=== PATIENT | female | born 1970 | race Caucasian/White ===

== ENCOUNTER 2023-07-30 20:51 | Inpatient (IN) ==
--- NOTE | 2023-07-30 21:07 | Emergency Department Note ---
Impression & Plan Chest pain ADMIT ED Provider Note HPI: History obtained from patient The patient is a 52-year-old female who presents emergency department chief complaint of chest pain. Patient states that 1 hour prior to arrival to the ER she developed chest pain across her entire chest, upper abdomen, and bilateral arms. On arrival here to the ED the patient states she is still having discomfort however it is improved from previous. Patient is hemodynamically stable otherwise on arrival, denies any shortness of breath, denies any nausea or vomiting. ROS: - Per HPI Differential Diagnosis: Acute coronary syndrome, pulmonary embolism, pneumothorax, gastritis, esophagitis, acute pancreatitis, aortic dissection, amongst other potential pathologies. *Outpatient medications and allergy history reviewed. PE: General: Alert HEENT: Normocephalic, trachea midline Eyes: Extraocular eye movement is intact, no scleral erythema Pulmonary: Clear to auscultation bilaterally, no wheezing Cardio: Regular rate and rhythm GI: Abdomen is soft to palpation : No suprapubic tenderness MSK: No evidence of trauma or malformation of the extremities, no edema Skin: No evidence of rash Neuro: Alert, no focal deficits Psychiatric: Cooperative INDEPENDENT INTERPRETATIONS: shelter monitor: (As interpreted by myself): - An order was placed for continuous cardiac monitoring - Patient was noted to be in sinus rhythm with a rate of 58 EKG #1 (As interpreted by myself): Rate: 55 Rhythm: Sinus rhythm Intervals: Within normal limits ST changes: T wave inversions noted in leads V1, V2, V3, no ST elevation Time: 210 Date: 07/30/2023 EKG #2: (As interpreted by myself): Rate: 50 Rhythm: Sinus rhythm Intervals: Within normal limits ST changes: T wave inversions noted in leads V1, V2, V3, no evidence of ST elevation Time: 0004 Date: 07/31/2023 Chest x-ray: (As interpreted by myself): No acute disease Interventions provided in ED: -IV morphine, IV Zofran, aspirin Medical Decision Making: IV was established and lab work obtained, patient was placed on alarm security or surveillance monitor. EKG was obtained shortly after the patient arrived that shows some evidence of T wave inversions in the anterior leads without any previous EKG available for comparison. No evidence of ST elevation LA. Lab work shows no leukocytosis, hemoglobin is normal, platelet count is normal, CMP does not show any critical findings. Initial high-sensitivity troponin level obtained here in the ED returns at 20.5. CT angiography of the chest was obtained and there is no evidence of any pulmonary embolism or aortic dissection. On my reassessment following IV morphine and IV Zofran the patient states her pain is much improved but she still does have some mild discomfort. At this time, I did discuss the patient's presentation with the on-call hospitalist, Dr. Ny, and he did accept the patient for inpatient care for further management and rule out of ACS. Repeat troponin did result following my discussion with Dr. Ny and returns at 228.4. On my reassessment the patient remained stable. Repeat EKG was performed at this time as the patient was still in the ED and repeat EKG does not show any acute changes from previous. I did inform Dr. Ny of the delta troponin change following our initial discussion, in addition to the repeat EKG obtained in the ED not showing any acute changes. Patient is hemodynamically stable on my reassessment, she is admitted to the hospitalist service at this time. Patient was admitted in stable condition. Consultants/Discussions held with other healthcare providers: -Hospitalist, Dr. Ny Disposition discussion held by myself with: -Patient and significant other at the bedside Diagnosis: 1. Chest pain, acute 2. Elevated high-sensitivity troponin level, acute 3. T wave inversions on EKG, unknown chronicity Disposition: ADMIT Jose Elias Broussard, DO Emergency Medicine Past Med/Surg History Social History Smoking Status: Never smoker Preferred Language: Latvian Feels Safe at Home: Yes Allergies Allergies Allergy/AdvReac Type Severity Reaction Status Date / Time Penicillins Allergy Unknown childhood Verified 07/30/23 23:33 reaction Sulfa (Sulfonamide Allergy Rash Verified 07/30/23 23:33 Antibiotics) Home Meds Home Medications Medication Instructions Recorded Confirmed acetaminophen 500 mg tablet 1,000 mg PO Q6H PRN Fever Or Pain 07/30/23 07/30/23 (Tylenol Extra Strength) diphenhydramine HCl 25 mg tablet 25 mg PO UD PRN allergies 07/30/23 07/30/23 (Benadryl Allergy) pseudoephedrine HCl 60 mg tablet 60 mg PO UD PRN congestion while 07/30/23 07/30/23 traveling sumatriptan 20 mg/actuation nasal 20 mg intranasal UD PRN Migraine 07/30/23 07/30/23 spray Headache Results & Data (ED) Vital Signs Vital Signs - 24 hr 07/30/23 20:54 07/30/23 21:11 07/30/23 22:00 Temperature 36.2 C L Temperature Source Temporal Artery Scan Pulse Rate 60 59 L Pulse Rhythm Respiratory Rate 20 Respiratory Effort / Characteristics Short of Breath Blood Pressure 108/63 Blood Pressure Mean 78 Pulse Oximetry 100 Oxygen Delivery Method Room Air Room Air Sepsis Recent Fever Within 48 Hours No Sepsis New/Unexplained Change in Mental Status No Sepsis Action Taken by Nursing No Action Required 07/30/23 22:00 07/30/23 22:00 Temperature Temperature Source Pulse Rate 62 62 Pulse Rhythm Regular Respiratory Rate 18 14 Respiratory Effort / Characteristics Blood Pressure 115/87 Blood Pressure Mean 96 Pulse Oximetry 98 100 Oxygen Delivery Method Room Air Room Air Sepsis Recent Fever Within 48 Hours Sepsis New/Unexplained Change in Mental Status Sepsis Action Taken by Nursing Laboratory Data 07/30/23 21:08 07/30/23 21:08 Lab Results 07/30/23 07/30/23 Range/Units 21:08 22:50 WBC 8.11 (4.8-10.8) K/ul RBC 4.71 (4.20-5.40) M/uL Hgb 14.0 (12.0-16.0) g/dl Hct 42.9 (37.0-47.0) % MCV 91.1 (80.0-100.0) fL MCH 29.7 (25.0-34.0) pg MCHC 32.6 (32.0-36.0) g/dL RDW Std Deviation 43.3 (36.4-46.3) fL RDW Coeff of Stephon 13.1 (11.5-14.5) % Plt Count 256 (130-400) K/uL MPV 11.4 (9.4-12.4) fL Immature Gran % (Auto) 0.2 % Neut % (Auto) 47.7 % Lymph % (Auto) 39.5 % [place] % (Auto) 9.9 % Eos % (Auto) 2.0 % Baso % (Auto) 0.7 % Neut # (Auto) 3.87 (1.40-6.50) K/uL Lymph # (Auto) 3.20 (1.20-3.40) K/uL [place] # (Auto) 0.80 H (0.11-0.59) K/uL Eos # (Auto) 0.16 (0.00-0.50) K/uL Baso # (Auto) 0.06 (0.00-0.20) K/uL Immature Gran # (Auto) 0.02 (0.01-0.20) K/uL PT 11.1 (9.0-12.0) Seconds INR 1.0 (0.9-1.1) APTT 23 (21-31) Seconds PTT Ratio 0.8 Sodium 141 (136-145) mmol/L Potassium 3.4 L (3.5-5.1) mmol/L Chloride 102 (98-107) mmol/L Carbon Dioxide 32 (21-32) mmol/L Anion Gap 7 (3-11) BUN 18 (6-23) mg/dl Creatinine 0.78 (0.6-1.2) mg/dl Est Cr Clr Drug Dosing Not Reportable Est GFR ( Amer) 99.9 ml/min Est GFR (Non-Af Amer) 86.2 ml/min BUN/Creatinine Ratio 23.1 H (10-20) Glucose 127 H (70-99(Fasting)) mg/dl Calcium 10.2 (8.6-10.3) mg/dl Magnesium 1.9 (1.7-2.4) mg/dl Total Bilirubin 0.4 (0.2-1.0) mg/dl AST 29 (13-39) U/L ALT 26 (7-52) U/L Alkaline Phosphatase 54 (34-104) U/L Troponin I High Sens 20.5 H 228.4 H* D (0-14) pg/ml Total Protein 7.4 (6.0-8.3) gm/dl Albumin 4.7 (3.4-5.0) gm/dl Globulin 2.7 (2.5-4.0) gm/dl Albumin/Globulin Ratio 1.7 (0.9-2) Lipase 64 (11-82) U/L Administered Medications Discontinued Medications Aspirin (Aspirin Chew 324 Mg) 324 mg PO NOW STA Stop: 07/30/23 23:10 Last Admin: 07/30/23 23:33 Dose: Not Given Documented By: NAW Sodium Chloride (Nss) 500 mls @ 999 mls/hr IV .Q31M STA Stop: 07/30/23 21:35 Last Infusion: 07/30/23 23:10 Dose: Infused Documented By: Admin: 07/30/23 21:17 Dose: 999 mls/hr Documented By: YONI Ioversol (Optiray 320 125ml) 125 ml IV ONCE ONE Stop: 07/30/23 22:37 Last Admin: 07/30/23 22:37 Dose: 118 ml Documented By: KRIS Morphine Sulfate (Morphine Sulfate 4 Mg/Ml 1 Ml Carp\Vial) 4 mg IV NOW STA Stop: 07/30/23 21:06 Last Admin: 07/30/23 21:17 Dose: 4 mg Documented By: YONI Morphine Sulfate (Morphine Sulfate 2 Mg/Ml Carp) 2 mg IV NOW STA Stop: 07/30/23 22:30 Last Admin: 07/30/23 22:43 Dose: 2 mg Documented By: YONI Ondansetron HCl (Ondansetron Inj 2 Mg/Ml 2 Ml Vial) 4 mg IV NOW STA Stop: 07/30/23 21:06 Last Admin: 07/30/23 21:17 Dose: 4 mg Documented By: YONI Ondansetron HCl (Ondansetron Inj 2 Mg/Ml 2 Ml Vial) 4 mg IV NOW STA Stop: 07/31/23 00:03 Last Admin: 07/31/23 00:10 Dose: 4 mg Documented By: YONI Imaging Data Radiologist's Impression: Chest CTA 07/30/23 22:20 Exam(s): CTA CHEST IV Amt: 118 ml optiray 320 EXAM: CT Angiography Chest With Intravenous Contrast CLINICAL HISTORY: Evaluate for PE. TECHNIQUE: Axial computed tomographic angiography images of the chest with intravenous contrast. CTDI is 8.27 mGy and DLP is 276.73 mGy-cm. Automated exposure control was utilized for the study. A dose lowering technique was utilized adhering to the principles of ALARA. MIP reconstructed images were created and reviewed. COMPARISON: No relevant prior studies available. FINDINGS: Pulmonary arteries: There is no evidence for pulmonary embolism. Aorta: No acute findings. No thoracic aortic aneurysm. Lungs: No focal airspace consolidation identified. Pleural space: Unremarkable. No significant effusion. No pneumothorax. Heart: Unremarkable. No cardiomegaly. No significant pericardial effusion. Bones/joints: No acute fracture. No dislocation. Soft tissues: Unremarkable. Lymph nodes: Unremarkable. No enlarged lymph nodes. IMPRESSION: 1. There is no evidence for pulmonary embolism. 2. No focal airspace consolidation identified. No pleural effusion or pneumothorax. Electronically signed by: Conor Brooks MD 07/30/23 22:57 PM Discharge Plan Visit Data Chief Complaint: Chest Pain Stated Complaint: SOB, CHEST PAIN, DIZZY, NAUSEA, COLD, WEAKNESS ED Provider: Jose Elias Broussard Discharge Problem: Chest pain Forms Stand Alone Forms: [facility] Prescriptions Prescriptions: No Action diphenhydramine HCl [Benadryl Allergy] 25 mg Tablet 25 mg PO UD PRN (Reason: allergies) sumatriptan 20 mg/actuation spray,non-aerosol 20 mg INTRANASAL UD PRN (Reason: Migraine Headache) pseudoephedrine HCl [Pseudofed] 60 mg Tablet 60 mg PO UD PRN (Reason: congestion while traveling) acetaminophen [Tylenol Extra Strength] 500 mg Tablet 1,000 mg PO Q6H PRN (Reason: Fever Or Pain) Referrals Referrals: PCP,NO [Physician] - Discharge Problem: Chest pain Qualifiers: Chest pain type: unspecified Qualified Code(s): R07.9 - Chest pain, unspecified
[2023-07-30] MEDS: SODIUM CHLORIDE 0.9% 500 ML IV STA (21:17)
[2023-07-30] MEDS: ONDANSETRON INJ 2 MG/ML 2 ML VIAL IV STA (21:17)
[2023-07-30] MEDS: MoRPHine SULFATE 4 MG/ML 1 ML CARP\\VIAL IV STA (21:17)
[2023-07-30 21:38] LABS: Basophils # (auto) 0.06 K/uL (0.00-0.20); Basophils % (auto) 0.7 %; Eosinophils # (auto) 0.16 K/uL (0.00-0.50); Hematocrit (blood only) 42.9 % (37.0-47.0); Immature Granulocytes # (auto) 0.02 K/uL (0.01-0.20); Immature Granulocytes % (auto) 0.2 %; Lymphocytes % (auto) 39.5 %; Mean Corpuscular Hemoglobin 29.7 pg (25.0-34.0); Mean Corpuscular Hgb Conc 32.6 g/dL (32.0-36.0); Mean Corpuscular Volume 91.1 fL (80.0-100.0); Mean Platelet Volume 11.4 fL (9.4-12.4); Monocytes % (auto) 9.9 %; Neutrophils # (auto) 3.87 K/uL (1.40-6.50); Neutrophils % (auto) 47.7 %; Platelet Count 256 K/uL (130-400); RDW Coefficient of Variation 13.1 % (11.5-14.5); RDW Standard Deviation 43.3 fL (36.4-46.3); Red Blood Count 4.71 M/uL (4.20-5.40); White Blood Count 8.11 K/ul (4.8-10.8)
[2023-07-30 21:52] LABS: Alanine Aminotransferase 26 U/L (7-52); Albumin Globulin Ratio 1.7 (0.9-2); Albumin Level 4.7 gm/dl (3.4-5.0); Alkaline Phosphatase 54 U/L (34-104); Anion Gap 7 (3-11); Aspartate Aminotransferase 29 U/L (13-39); BUN Creatinine Ratio 23.1 (10-20); Bilirubin,Total 0.4 mg/dl (0.2-1.0); Blood Urea Nitrogen 18 mg/dl (6-23); Calcium 10.2 mg/dl (8.6-10.3); Carbon Dioxide 32 mmol/L (21-32); Chloride 102 mmol/L (98-107); Est GFR (African American) 99.9 ml/min; Est GFR (Non-African American) 86.2 ml/min; Globulin 2.7 gm/dl (2.5-4.0); Glucose 127 mg/dl (70-99(Fasting)); Lipase 64 U/L (11-82); Potassium 3.4 mmol/L (3.5-5.1); Sodium 141 mmol/L (136-145); Total Protein 7.4 gm/dl (6.0-8.3)
[2023-07-30 21:58] LABS: Troponin I High Sensitivity 20.5 pg/ml (0-14)
[2023-07-30 22:04] LABS: Prothrombin Time 11.1 Seconds (9.0-12.0)
[2023-07-30] MEDS ORDERED: MoRPHine SULFATE 4 MG/ML 1 ML CARP\\VIAL IV STA (22:28)
[2023-07-30] MEDS: OPTIRAY 320 125ml IV ONE (22:37)
[2023-07-30] MEDS: MoRPHine SULFATE 2 MG/ML CARP IV STA (22:43)
--- NOTE | 2023-07-30 22:58 | CT Scan Report ---
Exam(s): CTA CHEST IV Amt: 118 ml optiray 320 EXAM: CT Angiography Chest With Intravenous Contrast CLINICAL HISTORY: Evaluate for PE. TECHNIQUE: Axial computed tomographic angiography images of the chest with intravenous contrast. CTDI is 8.27 mGy and DLP is 276.73 mGy-cm. Automated exposure control was utilized for the study. A dose lowering technique was utilized adhering to the principles of ALARA. MIP reconstructed images were created and reviewed. COMPARISON: No relevant prior studies available. FINDINGS: Pulmonary arteries: There is no evidence for pulmonary embolism. Aorta: No acute findings. No thoracic aortic aneurysm. Lungs: No focal airspace consolidation identified. Pleural space: Unremarkable. No significant effusion. No pneumothorax. Heart: Unremarkable. No cardiomegaly. No significant pericardial effusion. Bones/joints: No acute fracture. No dislocation. Soft tissues: Unremarkable. Lymph nodes: Unremarkable. No enlarged lymph nodes. IMPRESSION: 1. There is no evidence for pulmonary embolism. 2. No focal airspace consolidation identified. No pleural effusion or pneumothorax. Electronically signed by: Conor Brooks MD 07/30/23 22:57 PM
[2023-07-30] MEDS: ASPIRIN CHEW 324 MG PO STA (23:33)
[2023-07-30 23:54] LABS: Troponin I High Sensitivity 228.4 pg/ml (0-14)
--- NOTE | 2023-07-30 23:57 | History & Physical Report ---
Date of Service July 30, 2023 Assessment & Plan (1) NSTEMI (non-ST elevated myocardial infarction): Plan: hx rheumatic fever prediabetes, hemoglobin A1c of 5.3 last year PCU Aspirin, beta-bettie, IV heparin Nitro as needed chest pain Follow troponin TTE, Cardiology consult Re: NSTEMI N.p.o. until patient seen by cardiology in anticipation of ischemic workup Check lipid profile Update hemoglobin A1c DVT prophylaxis. IV heparin Full code Patient requesting updates providers. Mr. Rah Funez, contact #[phone]. Total critical care time was 45 minutes. Text document was generated using [facility] voice recognition software. It may contain grammatical or spelling errors. Kindly contact undersigned for clarification of any documentation item in question. History of Present Illness Chief Complaint: Chest pain Primary Care Provider: Alonzo Flores MD History obtained from patient, family, and records. Medical history significant for rheumatic fever, prediabetes, migraine. Patient was having dinner when her when she experienced somewhat heartburn-like but more intense going to both arms and shoulders associated with SOB, diaphoreses, and dizziness. Chest pain not relieved by Tums intake at home. No cough symptoms. No prior episodes. Patient and have noticed some easy fatigability symptoms in the last couple of weeks. Some improvement of chest pain with morphine administration at the ER. Medical History as above Surgical History : Endometrial ablation, breast biopsy, eye surgery, knee surgery, adenoidectomy Family History : Heart disease, vascular dementia, DM Personal/Social history : Non-smoker, occasional EtOH intake, retired diplomat Allergies Allergy/AdvReac Type Severity Reaction Status Date / Time Penicillins Allergy Unknown childhood Verified 07/30/23 23:33 reaction Sulfa (Sulfonamide Allergy Rash Verified 07/30/23 23:33 Antibiotics) Home Medications Medication Instructions Recorded Confirmed Type acetaminophen 500 mg tablet 1,000 mg PO Q6H PRN Fever Or Pain 07/30/23 07/30/23 History (Tylenol Extra Strength) diphenhydramine HCl 25 mg tablet 25 mg PO UD PRN allergies 07/30/23 07/30/23 History (Benadryl Allergy) pseudoephedrine HCl 60 mg tablet 60 mg PO UD PRN congestion while 07/30/23 07/30/23 History traveling sumatriptan 20 mg/actuation nasal 20 mg intranasal UD PRN Migraine 07/30/23 07/30/23 History spray Headache Past Med/Surg History Social History Smoking Status: Never smoker Preferred Language: Greek Feels Safe at Home: Yes Review of Systems Review of Systems: As per HPI, all other systems reviewed and negative Physical Exam Physical Exam: GENERAL: Pleasant, slightly anxious, no respiratory distress SKIN: Normal color, warm HEENT: [place] palpebral conjunctivae, no ptosis, dry buccal mucosa NECK : Supple, no tenderness CHEST : CTA, minimal anterior chest wall tenderness HEART : RRR, no obvious murmurs ABDOMEN: no distention, nontender EXTREMITIES : No LE swelling/tenderness, no other conspicuous deformities noted NEUROLOGIC : Coherent, no facial asymmetry, no other gross focality Results & Data Results & Data Vital Signs (Past 12 Hours) Vital Signs Temp Pulse Resp BP Pulse Ox O2 Del Method 07/30/23 22:00 62 14 115/87 100 Room Air 07/30/23 22:00 62 18 98 Room Air 07/30/23 22:00 Room Air 07/30/23 21:11 59 L 07/30/23 20:54 36.2 C L 60 20 108/63 100 Room Air Laboratory Results Laboratory Results WBC 8.11 K/ul (4.8-10.8) 07/30/23 21:08 RBC 4.71 M/uL (4.20-5.40) 07/30/23 21:08 Hgb 14.0 g/dl (12.0-16.0) 07/30/23 21:08 Hct 42.9 % (37.0-47.0) 07/30/23 21:08 MCV 91.1 fL (80.0-100.0) 07/30/23 21:08 MCH 29.7 pg (25.0-34.0) 07/30/23 21:08 MCHC 32.6 g/dL (32.0-36.0) 07/30/23 21:08 RDW Std Deviation 43.3 fL (36.4-46.3) 07/30/23 21:08 RDW Coeff of Stephon 13.1 % (11.5-14.5) 07/30/23 21:08 Plt Count 256 K/uL (130-400) 07/30/23 21:08 MPV 11.4 fL (9.4-12.4) 07/30/23 21:08 Immature Gran % (Auto) 0.2 % 07/30/23 21:08 Neut % (Auto) 47.7 % 07/30/23 21:08 Lymph % (Auto) 39.5 % 07/30/23 21:08 [place] % (Auto) 9.9 % 07/30/23 21:08 Eos % (Auto) 2.0 % 07/30/23 21:08 Baso % (Auto) 0.7 % 07/30/23 21:08 Neut # (Auto) 3.87 K/uL (1.40-6.50) 07/30/23 21:08 Lymph # (Auto) 3.20 K/uL (1.20-3.40) 07/30/23 21:08 [place] # (Auto) 0.80 K/uL (0.11-0.59) H 07/30/23 21:08 Eos # (Auto) 0.16 K/uL (0.00-0.50) 07/30/23 21:08 Baso # (Auto) 0.06 K/uL (0.00-0.20) 07/30/23 21:08 Immature Gran # (Auto) 0.02 K/uL (0.01-0.20) 07/30/23 21:08 PT 11.1 Seconds (9.0-12.0) 07/30/23 21:08 INR 1.0 (0.9-1.1) 07/30/23 21:08 Sodium 141 mmol/L (136-145) 07/30/23 21:08 Potassium 3.4 mmol/L (3.5-5.1) L 07/30/23 21:08 Chloride 102 mmol/L (98-107) 07/30/23 21:08 Carbon Dioxide 32 mmol/L (21-32) 07/30/23 21:08 Anion Gap 7 (3-11) 07/30/23 21:08 BUN 18 mg/dl (6-23) 07/30/23 21:08 Creatinine 0.78 mg/dl (0.6-1.2) 07/30/23 21:08 Est Cr Clr Drug Dosing Not Reportable 07/30/23 21:08 Est GFR ( Amer) 99.9 ml/min 07/30/23 21:08 Est GFR (Non-Af Amer) 86.2 ml/min 07/30/23 21:08 BUN/Creatinine Ratio 23.1 (10-20) H 07/30/23 21:08 Glucose 127 mg/dl (70-99(Fasting)) H 07/30/23 21:08 Calcium 10.2 mg/dl (8.6-10.3) 07/30/23 21:08 Total Bilirubin 0.4 mg/dl (0.2-1.0) 07/30/23 21:08 AST 29 U/L (13-39) 07/30/23 21:08 ALT 26 U/L (7-52) 07/30/23 21:08 Alkaline Phosphatase 54 U/L (34-104) 07/30/23 21:08 Troponin I High Sens 228.4 pg/ml (0-14) H* D 07/30/23 22:50 Total Protein 7.4 gm/dl (6.0-8.3) 07/30/23 21:08 Albumin 4.7 gm/dl (3.4-5.0) 07/30/23 21:08 Globulin 2.7 gm/dl (2.5-4.0) 07/30/23 21:08 Albumin/Globulin Ratio 1.7 (0.9-2) 07/30/23 21:08 Lipase 64 U/L (11-82) 07/30/23 21:08 Impressions Chest CTA 07/30/23 22:20 Exam(s): CTA CHEST IV Amt: 118 ml optiray 320 EXAM: CT Angiography Chest With Intravenous Contrast CLINICAL HISTORY: Evaluate for PE. TECHNIQUE: Axial computed tomographic angiography images of the chest with intravenous contrast. CTDI is 8.27 mGy and DLP is 276.73 mGy-cm. Automated exposure control was utilized for the study. A dose lowering technique was utilized adhering to the principles of ALARA. MIP reconstructed images were created and reviewed. COMPARISON: No relevant prior studies available. FINDINGS: Pulmonary arteries: There is no evidence for pulmonary embolism. Aorta: No acute findings. No thoracic aortic aneurysm. Lungs: No focal airspace consolidation identified. Pleural space: Unremarkable. No significant effusion. No pneumothorax. Heart: Unremarkable. No cardiomegaly. No significant pericardial effusion. Bones/joints: No acute fracture. No dislocation. Soft tissues: Unremarkable. Lymph nodes: Unremarkable. No enlarged lymph nodes. IMPRESSION: 1. There is no evidence for pulmonary embolism. 2. No focal airspace consolidation identified. No pleural effusion or pneumothorax. Electronically signed by: Conor Brooks MD 07/30/23 22:57 PM Diagnostic Findings EKG as per my interpretation : Rate 55, sinus bradycardia, normal axis, incomplete RBBB, T wave flattening lateral leads
[2023-07-30 23:58] LABS: Partial Thromboplastin Ratio 0.8; Partial Thromboplastin Time 23 Seconds (21-31)
[2023-07-31] MEDS: ONDANSETRON INJ 2 MG/ML 2 ML VIAL IV STA (00:10)
[2023-07-31 00:22] LABS: Magnesium 1.9 mg/dl (1.7-2.4)
[2023-07-31] MEDS ORDERED: MoRPHine SULFATE 2 MG/ML CARP IV PRN (00:52)
[2023-07-31] MEDS ORDERED: PROMETHAZINE HCL 6.25 MG in SODIUM CHLORIDE 0.9% 50 ML IV PRN (00:52)
[2023-07-31] MEDS ORDERED: NITROGLYCERIN SL 0.4 MG/TAB TAB SL PRN (00:52)
[2023-07-31] MEDS ORDERED: traMADol HCL 50 MG TABLET PO PRN (00:52)
[2023-07-31] MEDS ORDERED: LORazepam 0.5 MG TAB PO PRN (00:52)
[2023-07-31] MEDS: POTASSIUM CHLORIDE 20 MEQ in LACTATED RINGER'S 1,000 ML IV ONE (02:11)
[2023-07-31] MEDS: HEPARIN SODIUM/DEXTROSE 25,000 UNITS/500 ML BAG IV SCH (02:11)
[2023-07-31] MEDS: ASPIRIN 81 MG ECTAB PO STA (02:11)
[2023-07-31 03:37] LABS: Thyroid Stimulating Hormone 4.214 uIu/ml (0.300-4.500)
[2023-07-31] MEDS: Heparin IV Adult Wt-Based Standard *NO* INITIAL Bolus Protocol IV SCH (03:46)
[2023-07-31 04:37] LABS: Basophils # (auto) 0.04 K/uL (0.00-0.20); Basophils % (auto) 0.4 %; Hemoglobin 12.6 g/dl (12.0-16.0); Immature Granulocytes # (auto) 0.04 K/uL (0.01-0.20); Immature Granulocytes % (auto) 0.4 %; Lymphocytes # (auto) 0.92 K/uL (1.20-3.40); Lymphocytes % (auto) 10.1 %; Mean Corpuscular Hemoglobin 29.3 pg (25.0-34.0); Mean Corpuscular Hgb Conc 32.3 g/dL (32.0-36.0); Mean Corpuscular Volume 90.7 fL (80.0-100.0); Mean Platelet Volume 11.7 fL (9.4-12.4); Monocytes % (auto) 4.4 %; Neutrophils # (auto) 7.71 K/uL (1.40-6.50); Neutrophils % (auto) 84.7 %; Platelet Count 215 K/uL (130-400); RDW Coefficient of Variation 13.1 % (11.5-14.5); RDW Standard Deviation 43.5 fL (36.4-46.3); White Blood Count 9.11 K/ul (4.8-10.8)
[2023-07-31 04:50] LABS: Anion Gap 8 (3-11); BUN Creatinine Ratio 21.6 (10-20); Blood Urea Nitrogen 16 mg/dl (6-23); Calcium 9.4 mg/dl (8.6-10.3); Carbon Dioxide 26 mmol/L (21-32); Chloride 104 mmol/L (98-107); Chol HDL Ratio 1.9 (0-5); Cholesterol 136 mg/dl (0-200); Creatinine Clr Calc Pharmacy 66.8 ml/min; Est GFR (African American) 106.5 ml/min; Est GFR (Non-African American) 91.8 ml/min; Glucose 150 mg/dl (70-99(Fasting)); HDL Cholesterol 71 mg/dl; LDL Cholesterol Calculated 60 mg/dl; Sodium 138 mmol/L (136-145); Triglycerides 24 mg/dl (0-150); VLDL Cholesterol 5 mg/dl (0-30)
[2023-07-31 04:59] LABS: Troponin I High Sensitivity 18121.7 pg/ml (0-14)
[2023-07-31] MEDS: METOPROLOL TARTRATE 25 MG TAB PO STA (05:34)
--- NOTE | 2023-07-31 06:14 | Electrocardiogram Report ---
Test Reason : Blood Pressure : / mmHG Vent. Rate : 055 BPM Atrial Rate : 055 BPM P-R Int : 154 ms QRS Dur : 072 ms QT Int : 390 ms P-R-T Axes : 055 077 082 degrees QTc Int : 373 ms Poor data quality, interpretation may be adversely affected Sinus bradycardia Abnormal ECG No previous ECGs available Confirmed by García Cardoza ([id number]) on 07/31/2023 6:13:41 AM Referred By: REFERRED SELF Confirmed By:García Cardoza
--- NOTE | 2023-07-31 06:15 | Electrocardiogram Report ---
Test Reason : Blood Pressure : / mmHG Vent. Rate : 050 BPM Atrial Rate : 050 BPM P-R Int : 156 ms QRS Dur : 084 ms QT Int : 438 ms P-R-T Axes : 078 077 079 degrees QTc Int : 399 ms Sinus bradycardia T wave abnormality, consider anterior ischemia Abnormal ECG When compared with ECG of 30-JUL-2023 21:02, No significant change was found Confirmed by García Cardoza ([id number]) on 07/31/2023 6:14:32 AM Referred By: REFERRED SELF Confirmed By:García Cardoza
[2023-07-31 06:58] LABS: Estimated Average Glucose 120 mg/dl; Hemoglobin A1C 5.8 % (4.5-5.6)
--- NOTE | 2023-07-31 07:24 | XRay Report ---
XR chest 1V portable CLINICAL HISTORY: Chest pain, nonspecific COMPARISON STUDY: No previous studies for comparison. FINDINGS: Lung volumes are normal. Lungs are clear. There is no pneumothorax or pleural effusion. Car diac size is normal. Mediastinal contours are normal. There is no evidence for pulmonary edema. IMPRESSION: No acute cardiopulmonary findings. ACT 112: Negative or not required by law. Electronically signed by: Chevy Mariano M.D. 07/31/2023 7:22 AM
--- NOTE | 2023-07-31 08:30 | Cardiology Consultation ---
Date of Consultation July 31, 2023 Assessment & Plan (1) Chest pain: (2) NSTEMI (non-ST elevated myocardial infarction): (3) Prediabetes: (4) Raynauds disease: (5) Family history of ischemic heart disease: Plan 1. Resting echocardiography pending 2. Continue Aspirin, IV heparin, PRN sublingual nitroglycerin, and PRN morphine 3. Add statin 4. NPO for diagnostic cardiac catheterization today. 5. Further recommendations pending the above as well as evaluation by Dr. Randi peguero. Supervising Physician Co-Signing Physician Notes Attending attestation: Case reviewed with the advanced practitioner. I have personally performed a history and physical examination on the patient. I have reviewed the advanced practitioner's documentation on the date of service referenced in note, and I agree with, and take responsibility for the plan of care. Subjective: note 9/10 chest pain during non stress full telephone conversation with her sister at 8 pm. Walks regularly with no recent symptoms other than fatigue. CP free in ED at my assessment at 9 :44 am. She notes that when she was in her 20s she worked overseas in the [employer] for the [employer] and was diagnosed with rheumatic fever. She recalls having had an echocardiogram and was counseled that one of her heart valves was thickened but otherwise did function was normal. She has already had an echocardiogram performed today with mild thickening of the aortic valve and mitral valves, without stenosis or regurgitation, no regional wall motion abnormalities, normal LVEF in the range of 55 to 60%. Exam: CV: regular rhythm , no murmurs, no edema Data: Initial EKG tracings with mild T wave inversions in the anterior precordial leads. Repeat tracing performed at 934 reveals sinus bradycardia 53 bpm with T wave inversion limited to lead V2 otherwise normal tracing. Impression/ Plan: NSTEMI Medications as noted. Coronary angiography today. Mehran Cross DO History of Present Illness Reason for Consultation: ACS Requesting Physician: Dr. Ny Attending Physician: Dr. Cummings History of Present Illness Mrs. Ana Funez is a very pleasant 52-year-old female who is being seen at the request of Dr. Ny. Reason for consultation is ACS. Patient notes eating dinner (2 pieces of pizza and a glass of red wine) Sunday evening with her . Around 8 PM she finished a telephone conversation with her sister then, all of a sudden, experienced severe, 9 out of 10, substernal chest burning with a little bit of pressure that spread across her chest, into her axilla bilaterally, and into her back. The discomfort was associated with shortness of breath, diaphoresis, feeling cold, lightheadedness, and yawning. This discomfort was unlike anything she had ever experienced before. No improvement with [id number] antacids. The patient was driven to the ER by her . Patient notes that her has commented on and observed her to have reduced exercise tolerance and increased fatigability over the last couple of weeks. Data: 1. EKG on presentation revealed sinus bradycardia at 50 bpm with anterior T wave changes suggestive of ischemia. 2. A second EKG obtained in the ER is technically limited, revealing subtle inferior ST segment elevation along with anterolateral STT wave changes suggestive of ischemia. 3. High-sensitivity troponin on presentation was 20.5, rising to 228.4 then 18,121.7 pg/mL 4. Chest x-ray showed no acute cardiopulmonary findings. 5. CTA of the chest on 07/30/2023 showed no evidence of PE, acute thoracic injury, focal airspace consolidation, pleural effusion, or pneumothorax 6. Continuous playground monitor shows sinus/sinus bradycardia without significant arrhythmia 7. Patient notes improvement in chest discomfort with measures administered in the ER including oxygen, aspirin, morphine. She had mild recurrence of chest pain overnight and is currently chest pain-free. Past Medical and Surgical History: Raynauds Syndrome Prediabetes Migraine headaches Rheumatic fever, age 27 GERD Eczema 2 prior breast biopsies, benign fibroadenoma Endometrial ablation ORIF left knee Adenoidectomy Colonoscopy with diverticulosis and hemorrhoids Family History: Father is alive at 74 with hypertension, dyslipidemia, and diabetes. Paternal grandfather and paternal great grandfather both with myocardial infarction's in their 70s. Mother is alive in her 70s with hypertension and history of pericarditis. Brother with sick sinus syndrome and atrial fibrillation. Older sister without cardiac issues. Social History: Lifelong non-smoker. No smokeless tobacco. Alcohol: Occasional glass of red wine. No illegal/illicit drug use. . Originally from [place]. Worked for the [employer], at the [employer] in the [facility]. Complete Review of Systems: Constitutional: No recent colds or illnesses. No fevers or chills HENT: + Eustachian tube dysfunction. No amaurosis fugax. Pulmonary: No history of sleep apnea, pulmonary embolism, COPD or asthma. Cardiac: See above. GI/Abd: GERD. No dysphagia. No melena or hematochezia. Denies liver or kidney problems. Denies pancreatic issues Vascular: No history of carotid disease, AAA, or PAD. Hematologic: No coagulation disorder, anemia, or abnormal bleeding. Musculoskeletal: See above. Skin: No rash. Neurologic: No history of TIA, CVA, or seizure. Female : See above. Endocrine: Prediabetes diagnosed last year. No thyroid problems. Complete Review of Systems is as stated above, negative, or noncontributory. Allergies Allergy/AdvReac Type Severity Reaction Status Date / Time Penicillins Allergy Unknown childhood Verified 07/30/23 23:33 reaction Sulfa (Sulfonamide Allergy Rash Verified 07/30/23 23:33 Antibiotics) Home Medications Medication Instructions Recorded Confirmed Type acetaminophen 500 mg tablet 1,000 mg PO Q6H PRN Fever Or Pain 07/30/23 07/30/23 History (Tylenol Extra Strength) diphenhydramine HCl 25 mg tablet 25 mg PO UD PRN allergies 07/30/23 07/30/23 History (Benadryl Allergy) pseudoephedrine HCl 60 mg tablet 60 mg PO UD PRN congestion while 07/30/23 07/30/23 History traveling sumatriptan 20 mg/actuation nasal 20 mg intranasal UD PRN Migraine 07/30/23 07/30/23 History spray Headache Patient History Social History Smoking Status: Never smoker Preferred Language: [place] Feels Safe at Home: Yes Physical Exam Physical Exam: General: A&Ox3. NAD. HENT: Normocephalic. Atraumatic. Eyes: PER. Conjunctiva pink, sclera clear. Neck: No carotid bruits. No JVD. Heart: Bradycardic at 50 bpm. Soft apical systolic murmur. Lungs: Clear to auscultation. Abdomen: +BS. Soft. Nontender. No masses or organomegaly. Extremities: No clubbing, cyanosis, or edema. Limited neurological examination is without focal deficits. Pulses: radial=2/4, posterior tibial=2/4. Results & Data Vital Signs (Past 12 Hours) Vital Signs Temp Pulse Resp BP Pulse Ox Pulse Ox O2 Del Method 07/31/23 06:58 53 L 07/31/23 04:00 76 15 113/68 97 07/31/23 03:00 58 L 10 L 110/73 95 07/31/23 02:00 61 8 L 111/76 94 07/31/23 01:15 71 07/31/23 01:06 96 07/31/23 01:00 64 14 118/76 97 07/31/23 00:00 68 23 129/69 95 07/30/23 23:00 66 14 120/81 96 07/30/23 22:00 62 14 115/87 100 Room Air 07/30/23 22:00 62 18 98 Room Air 07/30/23 22:00 Room Air 07/30/23 21:11 59 L 07/30/23 20:54 36.2 C L 60 20 108/63 100 Room Air O2 Del Method 07/31/23 06:58 07/31/23 04:00 07/31/23 03:00 07/31/23 02:00 07/31/23 01:15 07/31/23 01:06 Room Air 07/31/23 01:00 07/31/23 00:00 07/30/23 23:00 07/30/23 22:00 07/30/23 22:00 07/30/23 22:00 07/30/23 21:11 07/30/23 20:54 Laboratory Results Cardiac Enzymes 07/30/23 07/30/23 07/31/23 Range/Units 21:08 22:50 04:13 AST 29 (13-39) U/L Troponin I High Sens 20.5 H 228.4 H* D 69597.7 H* D (0-14) pg/ml Coagulation 07/30/23 Range/Units 21:08 PT 11.1 (9.0-12.0) Seconds APTT 23 (21-31) Seconds Lipids 07/31/23 Range/Units 04:13 Triglycerides 24 (0-150) mg/dl Cholesterol 136 (0-200) mg/dl HDL Cholesterol 71 mg/dl Cholesterol/HDL Ratio 1.9 (0-5) CBC 07/30/23 07/31/23 Range/Units 21:08 04:13 WBC 8.11 9.11 (4.8-10.8) K/ul RBC 4.71 4.30 (4.20-5.40) M/uL Hgb 14.0 12.6 (12.0-16.0) g/dl Hct 42.9 39.0 (37.0-47.0) % Plt Count 256 215 (130-400) K/uL Neut # (Auto) 3.87 7.71 H (1.40-6.50) K/uL Lymph # (Auto) 3.20 0.92 L (1.20-3.40) K/uL [place] # (Auto) 0.80 H 0.40 (0.11-0.59) K/uL Eos # (Auto) 0.16 0.00 (0.00-0.50) K/uL Baso # (Auto) 0.06 0.04 (0.00-0.20) K/uL Comprehensive Metabolic Panel 07/30/23 07/31/23 Range/Units 21:08 04:13 Sodium 141 138 (136-145) mmol/L Potassium 3.4 L TNP (3.5-5.1) mmol/L Chloride 102 104 (98-107) mmol/L Carbon Dioxide 32 26 (21-32) mmol/L BUN 18 16 (6-23) mg/dl Creatinine 0.78 0.74 (0.6-1.2) mg/dl Glucose 127 H 150 H (70-99(Fasting)) mg/dl Calcium 10.2 9.4 (8.6-10.3) mg/dl AST 29 (13-39) U/L ALT 26 (7-52) U/L Alkaline Phosphatase 54 (34-104) U/L Total Protein 7.4 (6.0-8.3) gm/dl Albumin 4.7 (3.4-5.0) gm/dl Intake and Output 07/30/23 07/31/23 07/31/23 22:59 06:59 14:59 Intake Total 500 / 500 Balance 500 / 500 Intake: IV 500 / 500 Sodium Chloride 0.9% 500 ml @ 500 / 500 999 mls/hr IV .Q31M STA Rx#: [id number] Oral 0 / 0 Other: # Unmeasured Voids 2 Weight 48.7 kg Weight Measurement Method Built in Bedscale (1) Chest pain Chest pain type: unspecified Qualified Code(s): R07.9 - Chest pain, unspecified
[2023-07-31] MEDS ORDERED: METOPROLOL TARTRATE 25 MG TAB PO SCH (09:00)
--- NOTE | 2023-07-31 13:24 | Pre Anesthesia Assessment ---
Date of Service July 31, 2023 Pre Sedation Assessment Vital Signs Temp Pulse Pulse Resp BP BP Pulse Ox 07/31/23 13:06 68 16 124/77 99 07/31/23 12:00 57 L 16 96 07/31/23 12:00 117/81 07/31/23 11:00 58 L 19 07/31/23 11:00 141/86 H 07/31/23 10:00 112/70 07/31/23 10:00 52 L 16 94 07/31/23 09:00 124/78 07/31/23 09:00 50 L 12 100 07/31/23 08:18 67 14 07/31/23 08:18 120/80 07/31/23 08:00 46 L 12 07/31/23 07:00 94/67 L 07/31/23 07:00 52 L 12 97 07/31/23 06:58 53 L 07/31/23 06:00 107/71 07/31/23 06:00 56 L 15 98 07/31/23 05:00 56 L 12 98 07/31/23 05:00 108/74 07/31/23 04:00 76 15 113/68 97 07/31/23 03:00 58 L 10 L 110/73 95 07/31/23 02:00 61 8 L 111/76 94 07/31/23 01:15 71 07/31/23 01:06 07/31/23 01:00 64 14 118/76 97 07/31/23 00:00 68 23 129/69 95 07/30/23 23:00 66 14 120/81 96 07/30/23 22:00 62 14 115/87 100 07/30/23 22:00 62 18 98 07/30/23 22:00 07/30/23 21:11 59 L 07/30/23 20:54 97.2 F L 60 20 108/63 100 Pulse Ox O2 Del Method O2 Del Method 07/31/23 13:06 Room Air 07/31/23 12:00 07/31/23 12:00 07/31/23 11:00 07/31/23 11:00 07/31/23 10:00 07/31/23 10:00 07/31/23 09:00 07/31/23 09:00 Room Air 07/31/23 08:18 07/31/23 08:18 07/31/23 08:00 07/31/23 07:00 07/31/23 07:00 07/31/23 06:58 07/31/23 06:00 07/31/23 06:00 07/31/23 05:00 07/31/23 05:00 07/31/23 04:00 07/31/23 03:00 07/31/23 02:00 07/31/23 01:15 07/31/23 01:06 96 Room Air 07/31/23 01:00 07/31/23 00:00 07/30/23 23:00 07/30/23 22:00 Room Air 07/30/23 22:00 Room Air 07/30/23 22:00 Room Air 07/30/23 21:11 07/30/23 20:54 Room Air Cardiovascular + regular rate Respiratory + respiratory effort normal Pre-Sedation Airway Assessment Smoking Status: Never smoker Hx Sleep Apnea: No Hx Difficult Intubation: No Short, Thick Neck: No Thyromental Distance: > or= 3.5 Finger Breadths Oral Cavity: + WNL Mallampati Class: III ASA: ASA3 NPO Status Date of Last Intake of Fluids: 07/30/23 Time of Last Intake of Fluids: 20:00 Date of Last Intake of Solid Food: 07/30/23 Time of Last Intake of Solid Foods: 20:00 Procedure Planning Contraindications for Sedation: none Current Medications Reviewed: Yes Notes The planned sedation has been discussed with the patient. Informed Consent was obtained. I have identified the patient, determined the appropriateness of sedation and have assessed the patient immediately prior to the procedure. All medicine(s) and interventions are by my order.
[2023-07-31] MEDS: niCARdipine HCL INJ 2.5 MG/ML 10 ML AMP ONE (13:31)
[2023-07-31] MEDS: NITROGLYCERIN/D5W 100MCG/ML 20ML SYR ONE (13:32)
[2023-07-31] MEDS: HEPARIN (PORCINE) 1000 UNIT/ML 10 ML (CATH LAB USE ONLY) ONE (13:53)
[2023-07-31] MEDS: MIDAZOLAM HCL 1 MG/ML 2ML VIAL ONE (13:53)
[2023-07-31] MEDS: fentaNYL citrate PF 100 MCG/2 ML VIAL ONE (13:53)
[2023-07-31] MEDS: OPTIRAY 350 ONE (13:54)
--- NOTE | 2023-07-31 14:08 | Post Anesthesia Assessment ---
Date of Service July 31, 2023 Post Sedation Assessment Vital Signs Temp Pulse Pulse Resp BP BP Pulse Ox 07/31/23 13:06 68 16 124/77 99 07/31/23 12:00 57 L 16 96 07/31/23 12:00 117/81 07/31/23 11:00 58 L 19 07/31/23 11:00 141/86 H 07/31/23 10:00 112/70 07/31/23 10:00 52 L 16 94 07/31/23 09:00 124/78 07/31/23 09:00 50 L 12 100 07/31/23 08:18 67 14 07/31/23 08:18 120/80 07/31/23 08:00 46 L 12 07/31/23 07:00 94/67 L 07/31/23 07:00 52 L 12 97 07/31/23 06:58 53 L 07/31/23 06:00 107/71 07/31/23 06:00 56 L 15 98 07/31/23 05:00 56 L 12 98 07/31/23 05:00 108/74 07/31/23 04:00 76 15 113/68 97 07/31/23 03:00 58 L 10 L 110/73 95 07/31/23 02:00 61 8 L 111/76 94 07/31/23 01:15 71 07/31/23 01:06 07/31/23 01:00 64 14 118/76 97 07/31/23 00:00 68 23 129/69 95 07/30/23 23:00 66 14 120/81 96 07/30/23 22:00 62 14 115/87 100 07/30/23 22:00 62 18 98 07/30/23 22:00 07/30/23 21:11 59 L 07/30/23 20:54 97.2 F L 60 20 108/63 100 Pulse Ox O2 Del Method O2 Del Method 07/31/23 13:06 Room Air 07/31/23 12:00 07/31/23 12:00 07/31/23 11:00 07/31/23 11:00 07/31/23 10:00 07/31/23 10:00 07/31/23 09:00 07/31/23 09:00 Room Air 07/31/23 08:18 07/31/23 08:18 07/31/23 08:00 07/31/23 07:00 07/31/23 07:00 07/31/23 06:58 07/31/23 06:00 07/31/23 06:00 07/31/23 05:00 07/31/23 05:00 07/31/23 04:00 07/31/23 03:00 07/31/23 02:00 07/31/23 01:15 07/31/23 01:06 96 Room Air 07/31/23 01:00 07/31/23 00:00 07/30/23 23:00 07/30/23 22:00 Room Air 07/30/23 22:00 Room Air 07/30/23 22:00 Room Air 07/30/23 21:11 07/30/23 20:54 Room Air Recovery Score Activity: Moves 4 extremities Respiration: Deep Breath/Cough Circulation: +/-20% PreAnes Value Consciousness: Fully Awake Oxygen Saturation: O2 needed for >90% Discharge Sedation Level of Care: Fast Track Phase II Post Sedation Plan On clinical assessment, the patient appears to have tolerated the sedation without complications. Patient is recovering as anticipated. Patient will continue to be monitored by nursing and may be discharged when sedation discharge criteria are met per below protocol. Upon Completions of procedure up to 15 minutes continue every 5 minute vital signs and the P.A.R. score; then discharge to a Phase I or Fast Track to Phase II per the following guidelines: * Discharge Patient to appropriate Phase II area if PAR is 8 or greater or return to pre- procedure baseline. The post - procedure orders will be as directed. * If PAR score is less than 8 or not return to pre-procedure baseline then patient will follow Phase I monitoring till PAR is reached for Phase II. The Phase I may be done in procedure room or may call to secure a Phase I area. * If naloxone or flumazenil are used for reversal, hold in Phase I for continued monitoring from when last reversal dose was given for a minimum of 60 minutes or longer pending the nurse and/or physician discretion of patient condition before discharge to Phase II. Please call the Sedation Physician to re-evaluate and complete post-note for discharge to Phase II area. Do NOT discharge from procedure sedation or Phase 1 until post- sedation evaluation note is complete by procedure /sedation MD Sedation Discharge Instructions to be given to the patient at discharge to home.
--- NOTE | 2023-07-31 14:22 | Cardiac Catheterization ---
[facility] Data: Physician Practice Market Manager Cardiac Status Clinical evaluation leading to the procedure CAD Presenation: Non STEMI Anginal Classification: CCS IV Diagnostic Physicians Name: Best Torres MD Closure Device Recommendations: Medical Therapy and/or Counseling Cardiac Cath Procedure Full Procedure Date July 31, 2023 Pre-Procedure Diagnosis Pre-Procedure Diagnosis: Non STEMI AUC Score AUC Score: 7 Post-Procedure Diagnosis Post-Procedure Diagnosis: Severe CAD and Normal Intracardiac Pressures Procedure(s) Performed Procedure(s) Performed: Coronary Angiography and Left Heart Cath Forms Analysis Manager Best Torres MD Rehab Director Occupational Therapist(s) Dw[employer]ler Estimated Blood Loss Estimated Blood Loss: 5 Medication(s) Medication(s): Fentanyl, Heparin, Lidocaine 1%, Nicardipine, Nitroglycerin and Versed Summary of Findings Indication: NSTEMI Access: 6 Fr slender right radial artery Catheters: Surprise Findings: LM -normal caliber, no significant disease LAD -medium caliber vessel, no significant disease. Distal vessel wraps around apex. Medium D3 with 30% ostial stenosis. Circumflex -medium caliber, AV groove circumflex without significant disease. Gives off 3 tortuous small to medium caliber obtuse marginals. OM2 with 25% proximal disease, small branch off midportion of OM2 appears acutely occluded with contrast dye staining the ostium. RCA -dominant, medium caliber, angiographically normal. Medium RPDA tortuous without significant disease. LVEDP -15 Arterial Closure: TR band Summary: 1. No significant coronary artery disease in major epicardial coronary arteries 2. Acute occlusion of very small branch off of OM2 (too small for intervention) . 3. Mild nonobstructive branch vessel disease D3 3% ostial Proximal OM2 25% 4. Normal intracardiac filling pressure Recommendations: Patient chest pain-free, electrically stable and LV function preserved. Recommend medical management of small branch vessel disease. Antiplatelet therapy, ASCVD risk factor modification per Dr. Cross Hemodynamics Rest Ao:: 106/63/84 Final Ao: 123/77/99 LV: 132/15 Recommendations Recommendations: Medical Therapy and/or Counseling Radiation Exposure (mGy) 113 Contrast (mls) 30 Anesthesia Moderate [id number] Procedural Complication(s) None Disposition Physician Practice Market Manager Holding/Recovery I attest to the content of the Intraoperative Record and any orders documented therein. Any exceptions are noted below. [email or web address] Card Cath Procedure Codes Cardiac Catheterization Procedure 1: Cardiovascular Cath Procedures: 49492 Coronaries and LHC (+/-LV) Moderate Sedation Procedure 1: Sedation/Anesthesia: 29035 Mod Sedation by the same physician;Init15 Min Child Age 5 & Up PG Care Time/CCT Total # of Minutes Spent Total Time Spent with Patient: Total time spent is greater than 50% in coordination of care (as documented) at patient's floor/unit and/or counseling patient:
[2023-07-31] MEDS: diphenhydrAMINE 50 MG/ML VIAL ONE (15:06)
[2023-07-31] MEDS: LIDOCAINE 1% LOCAL 20 ML VIAL ONE (15:09)
[2023-07-31] MEDS: ATORVASTATIN 10 MG TAB PO SCH (15:50)
--- NOTE | 2023-07-31 15:51 | Hospitalist Progress Note ---
Date of Service July 31, 2023 Assessment & Plan (1) NSTEMI (non-ST elevated myocardial infarction): Plan: NSTEMI --S/P Cardiac Cath:No significant coronary artery disease in major epicardial coronary arteries. Acute occlusion of very small branch off of OM2 (too small for intervention). Mild nonobstructive branch vessel diseaseD3 3% ostial. Proximal OM2 25% Normal intracardiac filling pressure --ECHO: Normal left ventricular wall thickness. Left ventricle wall motion is normal with no regional wall motion abnormalities. Left ventricle systolic function is normal. EF 55 to 60%. Subtle mild thickening of the mitral valve and aortic valves without stenosis or regurgitation. Mild tricuspid regurgitation. -- HbA1c 5.8 --Lipid panel within normal limits Continue aspirin, statin, Plavix, metoprolol Also on IV heparin Appreciate cardiology input Prediabetes HbA1c 5.8 H/O Rheumatic fever As per records DVT Px: IV heparin Code Status Full code Admission and Anticipated Discharge Date Admission Date: July 30, 2023 Subjective Patient is seen and examined at bedside Plan for cardiac catheterization today Chest pain much improved Admits to have nausea, vomiting, dizziness this morning No other complaints Review of Systems Review of Systems: All systems reviewed & are unremarkable except as noted in Subjective Physical Exam Physical Exam: Physical Exam: Vitals signs as noted above General Appearance:Thin, frail, no apparent distress Head: normocephalic, Atraumatic Eyes: normal inspection, EOMI Neck: supple, Trachea midline Respiratory/Chest: Normal breath sounds, CTA, No accessory muscle use Cardiovascular: S1, S2, + murmur Abdomen/GI:Soft, Non tender, Bowel sounds present Extremities/Musculoskeletal:normal inspection, no edema Neurologic/Psych:AAOX3, grossly no focal neurological deficits Skin: normal color, warm Results & Data Results & Data Vital Signs (Past 12 Hours) Vital Signs Pulse Pulse Resp BP BP Pulse Ox O2 Del Method 07/31/23 14:37 59 L 16 102/72 97 Room Air 07/31/23 14:17 52 L 18 108/77 96 Room Air 07/31/23 14:06 52 L 18 119/77 96 Room Air 07/31/23 13:06 68 16 124/77 99 Room Air 07/31/23 12:00 57 L 16 96 07/31/23 12:00 117/81 07/31/23 11:00 58 L 19 07/31/23 11:00 141/86 H 07/31/23 10:00 112/70 07/31/23 10:00 52 L 16 94 07/31/23 09:00 124/78 07/31/23 09:00 50 L 12 100 Room Air 07/31/23 08:18 67 14 07/31/23 08:18 120/80 07/31/23 08:00 46 L 12 07/31/23 07:00 94/67 L 07/31/23 07:00 52 L 12 97 07/31/23 06:58 53 L 07/31/23 06:00 107/71 07/31/23 06:00 56 L 15 98 07/31/23 05:00 56 L 12 98 07/31/23 05:00 108/74 07/31/23 04:00 76 15 113/68 97 Laboratory Results Short CBC 07/30/23 07/31/23 Range/Units 21:08 04:13 WBC 8.11 9.11 (4.8-10.8) K/ul Hgb 14.0 12.6 (12.0-16.0) g/dl Hct 42.9 39.0 (37.0-47.0) % Plt Count 256 215 (130-400) K/uL BMP 07/30/23 07/31/23 07/31/23 21:08 04:13 08:24 Sodium 141 138 Potassium 3.4 L TNP 4.2 D Chloride 102 104 Carbon Dioxide 32 26 BUN 18 16 Creatinine 0.78 0.74 Glucose 127 H 150 H Calcium 10.2 9.4 Liver Function 07/30/23 Range/Units 21:08 Total Bilirubin 0.4 (0.2-1.0) mg/dl AST 29 (13-39) U/L ALT 26 (7-52) U/L Alkaline Phosphatase 54 (34-104) U/L Albumin 4.7 (3.4-5.0) gm/dl
[2023-07-31] MEDS: CLOPIDOGREL BISULFATE 300 MG TAB PO STA (16:19)
[2023-07-31] MEDS: METOPROLOL TARTRATE 25 MG TAB PO SCH (20:29)
[2023-08-01 00:42] LABS: ANTI-Xa, UFH(UnfractionatedHep 0.77 IU/ml (0.3-0.7)
[2023-08-01] MEDS: ACETAMINOPHEN 325 MG TAB PO PRN (05:01)
--- NOTE | 2023-08-01 06:11 | Electrocardiogram Report ---
Test Reason : Blood Pressure : / mmHG Vent. Rate : 053 BPM Atrial Rate : 053 BPM P-R Int : 164 ms QRS Dur : 082 ms QT Int : 444 ms P-R-T Axes : 079 076 072 degrees QTc Int : 416 ms Sinus bradycardia Otherwise normal ECG When compared with ECG of 31-JUL-2023 00:04, No significant change was found Confirmed by García Cardoza ([id number]) on 08/01/2023 6:11:41 AM Referred By: REFERRED SELF Confirmed By:García Cardoza
[2023-08-01 07:04] LABS: Hematocrit (blood only) 39.8 % (37.0-47.0); Hemoglobin 12.9 g/dl (12.0-16.0); Mean Corpuscular Hemoglobin 29.6 pg (25.0-34.0); Mean Corpuscular Hgb Conc 32.4 g/dL (32.0-36.0); Mean Corpuscular Volume 91.3 fL (80.0-100.0); Mean Platelet Volume 11.7 fL (9.4-12.4); Platelet Count 184 K/uL (130-400); RDW Coefficient of Variation 13.2 % (11.5-14.5); Red Blood Count 4.36 M/uL (4.20-5.40); White Blood Count 7.43 K/ul (4.8-10.8)
[2023-08-01 07:26] LABS: BUN Creatinine Ratio 17.6 (10-20); Calcium 9.1 mg/dl (8.6-10.3); Creatinine Clr Calc Pharmacy 64.6 ml/min; Est GFR (African American) 106.5 ml/min; Est GFR (Non-African American) 91.8 ml/min; Potassium 3.7 mmol/L (3.5-5.1)
[2023-08-01 07:34] LABS: ANTI-Xa, UFH(UnfractionatedHep 1.01 IU/ml (0.3-0.7)
[2023-08-01] MEDS: CLOPIDOGREL BISULFATE 75 MG TAB PO SCH (08:16)
[2023-08-01] MEDS: ASPIRIN 81 MG ECTAB PO SCH (08:16)
--- NOTE | 2023-08-01 08:43 | Cardiology Progress Note ---
Date of Service August 01, 2023 Assessment & Plan (1) Chest pain: (2) NSTEMI (non-ST elevated myocardial infarction): (3) ASCVD (arteriosclerotic cardiovascular disease): Plan: NSTEMI. July 31, 2023 right radial artery diagnostic cardiac catheterization with an acute occlusion of a very small branch off of the obtuse marginal #2, too small for intervention, otherwise, mild nonobstructive branch vessel coronary artery disease with a 30% ostial stenosis of the medium sized D3 and a 25% proximal stenosis of the second obtuse marginal. Anatomy was right dominant with RCA being angiographically normal, with a medium sized RPDA that was described as tortuous though without significant disease. Plan 1. Discontinue IV heparin 2. Discontinue metoprolol tartrate 3. Aspirin 81 mg/day 4. Clopidogrel 75 mg/day (duration 6 to 12 months unless unable to tolerate ASA then technician terminal and repeater) 5. Atorvastatin 10 mg/day 6. PRN sublingual nitroglycerin 7. Hypotension will not permit adding an ACEI/ARB; LVEF 8. Increase activity as tolerated. 9. OK for discharge 10. Outpatient cardiology follow-up with Dr. Cross at [facility]. Admission and Anticipated Discharge Date Admission Date: July 30, 2023 Supervising Physician Co-Signing Physician Notes Attending attestation: Case reviewed with the advanced practitioner. I have personally performed a history and physical examination on the patient. I have reviewed the advanced practitioner's documentation on the date of service referenced in note, and I agree with, and take responsibility for the plan of care. Subjective: feels well. No chest pain. Telemetry without arrhythmia. Exam: CV: regular rhythm , no murmurs, no edema Medication plan as outlined above. Can return to short walks in 3-4 days. Can return to easy effort ice skating in 2 weeks. Outpt cardiac rehab. Mehran Cross, DO Subjective Patient seen and examined. Chart, medications, telemetry reviewed. Feeling okay. No chest pain, palpitations, or shortness of breath. Notes chronic mild hypotension as well as prior possible sensitivity to salicylates, flushing. Review of Systems Review of Systems: Complete review of systems is otherwise as stated above, negative, or noncontributory. Physical Exam Physical Exam: General: A&Ox3. NAD. HENT: Normocephalic. Atraumatic. Eyes: PER. Conjunctiva pink, sclera clear. Neck: No carotid bruits. No JVD. Heart: Bradycardic at 56 bpm. Soft apical systolic murmur. Lungs: Clear to auscultation. Abdomen: +BS. Soft. Nontender. No masses or organomegaly. Extremities: No clubbing, cyanosis, or edema. Limited neurological examination is without focal deficits. Pulses: radial=2/4, posterior tibial=2/4. Results & Data Vital Signs (Past 12 Hours) Vital Signs Temp Pulse Pulse Resp BP Pulse Ox O2 Del Method 08/01/23 07:24 36.6 C 57 L 16 93/67 L 99 Room Air 08/01/23 07:12 49 L 08/01/23 03:08 36.7 C 56 L 20 98/66 L 98 Room Air 07/31/23 23:21 36.7 C 56 L 20 101/72 96 Room Air 07/31/23 23:16 54 L Laboratory Results CBC 08/01/23 Range/Units 06:23 WBC 7.43 (4.8-10.8) K/ul RBC 4.36 (4.20-5.40) M/uL Hgb 12.9 (12.0-16.0) g/dl Hct 39.8 (37.0-47.0) % Plt Count 184 (130-400) K/uL Comprehensive Metabolic Panel 07/31/23 08/01/23 Range/Units 08:24 06:23 Sodium 140 (136-145) mmol/L Potassium 4.2 D 3.7 (3.5-5.1) mmol/L Chloride 106 (98-107) mmol/L Carbon Dioxide 29 (21-32) mmol/L BUN 13 (6-23) mg/dl Creatinine 0.74 (0.6-1.2) mg/dl Glucose 108 H (70-99(Fasting)) mg/dl Calcium 9.1 (8.6-10.3) mg/dl Intake and Output 07/31/23 08/01/23 08/01/23 22:59 06:59 14:59 Intake Total 1192.733 / 1426.433 99.9 / 1426.433 116.167 / 116.167 Balance 1192.733 / 1426.433 99.9 / 1426.433 116.167 / 116.167 Intake: IV 852.733 / 1086.433 99.9 / 1086.433 116.167 / 116.167 Heparin Sodium/Dextrose 25,000 171.9 / 405.6 99.9 / 405.6 116.167 / 116.167 units In 500 ml @ 850 UNITS/HR 17 mls/hr IV .Q24H KA[facility] Rx#: [id number] Potassium Chloride 20 meq In 680.833 / 680.833 Lactated Ringer's 1,000 ml @ 75 mls/hr IV .[id number] ONE Rx#: [id number] Oral 340 / 340 Other: Weight 47 kg 47.1 kg Weight Measurement Method Built in [facility] Diagnostic Findings July 31, 2023 TTE interpretation summary ([facility], Dr. Cross): There is normal LV wall thickness. The left ventricular wall motion is normal with no regional wall motion abnormalities. LV systolic function normal. LVEF 55 to 60%. Subtle mild thickening of the mitral valve and aortic valves without stenosis or regurgitation. Mild tricuspid regurgitation. Telemetry: Sinus/sinus bradycardia throughout with heart rates predominantly in the 50s and 60s. (1) Chest pain Chest pain type: unspecified Qualified Code(s): R07.9 - Chest pain, unspecified
--- NOTE | 2023-08-01 12:17 | Hospitalist Progress Note ---
Date of Service August 01, 2023 Assessment & Plan (1) NSTEMI (non-ST elevated myocardial infarction): Plan: NSTEMI --S/P Cardiac Cath:No significant coronary artery disease in major epicardial coronary arteries. Acute occlusion of very small branch off of OM2 (too small for intervention). Mild nonobstructive branch vessel diseaseD3 3% ostial. Proximal OM2 25% Normal intracardiac filling pressure --ECHO: Normal left ventricular wall thickness. Left ventricle wall motion is normal with no regional wall motion abnormalities. Left ventricle systolic function is normal. EF 55 to 60%. Subtle mild thickening of the mitral valve and aortic valves without stenosis or regurgitation. Mild tricuspid regurgitation. -- HbA1c 5.8 --Lipid panel within normal limits Continue aspirin, statin, Plavix IV heparin discontinued Appreciate cardiology input Started on atorvastatin 10 mg daily No CAROLYN, ARB, BB given hypotension Plan to be discharged home Advised to follow-up with cardiology on discharge Prediabetes HbA1c 5.8 H/O Rheumatic fever As per records DVT Px: IV heparin--discontinue Code Status Full code Disposition Home Admission and Anticipated Discharge Date Admission Date: July 30, 2023 Subjective Patient is seen and examined at bedside Headache much improved No recurrence of chest pain Denies nausea, vomiting, abdominal pain, dyspnea Plan to discharged home Review of Systems Review of Systems: All systems reviewed & are unremarkable except as noted in Subjective Physical Exam Physical Exam: Physical Exam: Vitals signs as noted above General Appearance:Thin, frail, no apparent distress Head: normocephalic, Atraumatic Eyes: normal inspection, EOMI Neck: supple, Trachea midline Respiratory/Chest: Normal breath sounds, CTA, No accessory muscle use Cardiovascular: S1, S2, + murmur Abdomen/GI:Soft, Non tender, Bowel sounds present Extremities/Musculoskeletal:normal inspection, no edema Neurologic/Psych:AAOX3, grossly no focal neurological deficits Skin: normal color, warm Results & Data Results & Data Vital Signs (Past 12 Hours) Vital Signs Temp Pulse Pulse Resp BP Pulse Ox O2 Del Method 08/01/23 11:00 36.6 C 63 18 115/79 96 Room Air 08/01/23 07:24 36.6 C 57 L 16 93/67 L 99 Room Air 08/01/23 07:12 49 L 08/01/23 03:08 36.7 C 56 L 20 98/66 L 98 Room Air Laboratory Results Short CBC 08/01/23 Range/Units 06:23 WBC 7.43 (4.8-10.8) K/ul Hgb 12.9 (12.0-16.0) g/dl Hct 39.8 (37.0-47.0) % Plt Count 184 (130-400) K/uL BMP 08/01/23 06:23 Sodium 140 Potassium 3.7 Chloride 106 Carbon Dioxide 29 BUN 13 Creatinine 0.74 Glucose 108 H Calcium 9.1
--- NOTE | 2023-08-01 12:23 | Discharge Summary ---
Date of Service August 01, 2023 Admission HPI Per Admitting Provider History obtained from patient, family, and records. Medical history significant for rheumatic fever, prediabetes, migraine. Patient was having dinner when her when she experienced somewhat heartburn-like but more intense going to both arms and shoulders associated with SOB, diaphoreses, and dizziness. Chest pain not relieved by Tums intake at home. No cough symptoms. No prior episodes. Patient and have noticed some easy fatigability symptoms in the last couple of weeks. Some improvement of chest pain with morphine administration at the ER. Medical History as above Surgical History : Endometrial ablation, breast biopsy, eye surgery, knee surgery, adenoidectomy Family History : Heart disease, vascular dementia, DM Personal/Social history : Non-smoker, occasional EtOH intake, retired diplomat Admission Exam Per Admitting Provider GENERAL: Pleasant, slightly anxious, no respiratory distress SKIN: Normal color, warm HEENT: Plummer palpebral conjunctivae, no ptosis, dry buccal mucosa NECK : Supple, no tenderness CHEST : CTA, minimal anterior chest wall tenderness HEART : RRR, no obvious murmurs ABDOMEN: no distention, nontender EXTREMITIES : No LE swelling/tenderness, no other conspicuous deformities noted NEUROLOGIC : Coherent, no facial asymmetry, no other gross focality Principal Diagnosis Non-ST segment elevation myocardial infarction Prediabetes Discharge Data Allergies Allergy/AdvReac Type Severity Reaction Status Date / Time Penicillins Allergy Unknown childhood Verified 07/30/23 23:33 reaction Sulfa (Sulfonamide Allergy Rash Verified 07/30/23 23:33 Antibiotics) mushroom AdvReac Verified 07/31/23 16:49 Consultations 07/31/23 00:52 Consult Cardiology Routine Procedures Performed Operation Date: 07/31/23 13:37 Actual Procedures p Cath, Left with Cors and Vent - Best Torres MD s Cineradiography w/Routine Exam - Best Torres MD Laboratory Results WBC 7.43 K/ul (4.8-10.8) 08/01/23 06:23 RBC 4.36 M/uL (4.20-5.40) 08/01/23 06:23 Hgb 12.9 g/dl (12.0-16.0) 08/01/23 06:23 Hct 39.8 % (37.0-47.0) 08/01/23 06:23 MCV 91.3 fL (80.0-100.0) 08/01/23 06:23 MCH 29.6 pg (25.0-34.0) 08/01/23 06:23 MCHC 32.4 g/dL (32.0-36.0) 08/01/23 06:23 RDW Std Deviation 44.0 fL (36.4-46.3) 08/01/23 06: RDW Coeff of Stephon 13.2 % (11.5-14.5) 08/01/23 06:23 Plt Count 184 K/uL (130-400) 08/01/23 06:23 MPV 11.7 fL (9.4-12.4) 08/01/23 06:23 Immature Gran % (Auto) 0.4 % 07/31/23 04:13 Neut % (Auto) 84.7 % 07/31/23 04:13 Lymph % (Auto) 10.1 % 07/31/23 04:13 Hendry % (Auto) 4.4 % 07/31/23 04:13 Eos % (Auto) 0.0 % 07/31/23 04:13 Baso % (Auto) 0.4 % 07/31/23 04:13 Neut # (Auto) 7.71 K/uL (1.40-6.50) H 07/31/23 04:13 Lymph # (Auto) 0.92 K/uL (1.20-3.40) L 07/31/23 04:13 Hendry # (Auto) 0.40 K/uL (0.11-0.59) 07/31/23 04:13 Eos # (Auto) 0.00 K/uL (0.00-0.50) 07/31/23 04:13 Baso # (Auto) 0.04 K/uL (0.00-0.20) 07/31/23 04:13 Immature Gran # (Auto) 0.04 K/uL (0.01-0.20) 07/31/23 04:13 PT 11.1 Seconds (9.0-12.0) 07/30/23 21:08 INR 1.0 (0.9-1.1) 07/30/23 21:08 APTT 23 Seconds (21-31) 07/30/23 21:08 PTT Ratio 0.8 07/30/23 21:08 Heparin Anti-Xa, Unfract 1.01 IU/ml (0.3-0.7) H* 08/01/23 06:23 Sodium 140 mmol/L (136-145) 08/01/23 06:23 Potassium 3.7 mmol/L (3.5-5.1) 08/01/23 06:23 Chloride 106 mmol/L (98-107) 08/01/23 06:23 Carbon Dioxide 29 mmol/L (21-32) 08/01/23 06:23 Anion Gap 5 (3-11) 08/01/23 06:23 BUN 13 mg/dl (6-23) 08/01/23 06:23 Creatinine 0.74 mg/dl (0.6-1.2) 08/01/23 06:23 Est Cr Clr Drug Dosing 64.6 ml/min 08/01/23 06:23 Est GFR ( Amer) 106.5 ml/min 08/01/23 06:23 Est GFR (Non-Af Amer) 91.8 ml/min 08/01/23 06:23 BUN/Creatinine Ratio 17.6 (10-20) 08/01/23 06:23 Glucose 108 mg/dl (70-99(Fasting)) H 08/01/23 06:23 Estimat Average Glucose 120 mg/dl 07/31/23 04:13 Hemoglobin A1c 5.8 % (4.5-5.6) H 07/31/23 04:13 Calcium 9.1 mg/dl (8.6-10.3) 08/01/23 06:23 Magnesium 2.0 mg/dl (1.7-2.4) 08/01/23 06:23 Total Bilirubin 0.4 mg/dl (0.2-1.0) 07/30/23 21:08 AST 29 U/L (13-39) 07/30/23 21:08 ALT 26 U/L (7-52) 07/30/23 21:08 Alkaline Phosphatase 54 U/L (34-104) 07/30/23 21:08 Troponin I High Sens 97739.7 pg/ml (0-14) H* D 07/31/23 04:13 Total Protein 7.4 gm/dl (6.0-8.3) 07/30/23 21:08 Albumin 4.7 gm/dl (3.4-5.0) 07/30/23 21:08 Globulin 2.7 gm/dl (2.5-4.0) 07/30/23 21:08 Albumin/Globulin Ratio 1.7 (0.9-2) 07/30/23 21:08 Triglycerides 24 mg/dl (0-150) 07/31/23 04:13 Cholesterol 136 mg/dl (0-200) 07/31/23 04:13 LDL Cholesterol, Calc 60 mg/dl 07/31/23 04:13 VLDL Cholesterol, Calc 5 mg/dl (0-30) 07/31/23 04:13 HDL Cholesterol 71 mg/dl 07/31/23 04:13 Cholesterol/HDL Ratio 1.9 (0-5) 07/31/23 04:13 Lipase 64 U/L (11-82) 07/30/23 21:08 TSH 4.214 uIu/ml (0.300-4.500) 07/30/23 21:08 Lyme Disease Screen Negative (Negative) 07/31/23 04:12 Impressions Chest X-Ray 07/30/23 21:05 XR chest 1V portable CLINICAL HISTORY: Chest pain, nonspecific COMPARISON STUDY: No previous studies for comparison. FINDINGS: Lung volumes are normal. Lungs are clear. There is no pneumothorax or pleural effusion. Cardiac size is normal. Mediastinal contours are normal. There is no evidence for pulmonary edema. IMPRESSION: No acute cardiopulmonary findings. ACT 112: Negative or not required by law. Electronically signed by: Chevy Mariano M.D. 07/31/2023 7:22 AM Chest CTA 07/30/23 22:20 Exam(s): CTA CHEST IV Amt: 118 ml optiray 320 EXAM: CT Angiography Chest With Intravenous Contrast CLINICAL HISTORY: Evaluate for PE. TECHNIQUE: Axial computed tomographic angiography images of the chest with intravenous contrast. CTDI is 8.27 mGy and DLP is 276.73 mGy-cm. Automated exposure control was utilized for the study. A dose lowering technique was utilized adhering to the principles of ALARA. MIP reconstructed images were created and reviewed. COMPARISON: No relevant prior studies available. FINDINGS: Pulmonary arteries: There is no evidence for pulmonary embolism. Aorta: No acute findings. No thoracic aortic aneurysm. Lungs: No focal airspace consolidation identified. Pleural space: Unremarkable. No significant effusion. No pneumothorax. Heart: Unremarkable. No cardiomegaly. No significant pericardial effusion. Bones/joints: No acute fracture. No dislocation. Soft tissues: Unremarkable. Lymph nodes: Unremarkable. No enlarged lymph nodes. IMPRESSION: 1. There is no evidence for pulmonary embolism. 2. No focal airspace consolidation identified. No pleural effusion or pneumothorax. Electronically signed by: Conor Brooks MD 07/30/23 22:57 PM Ordered Studies 07/30/23 22:20 CT angio chest PE protocol Stat 07/31/23 13:00 CL Cath Imgs for PACS use only Routine Hospital Course (1) NSTEMI (non-ST elevated myocardial infarction): NSTEMI --S/P Cardiac Cath:No significant coronary artery disease in major epicardial coronary arteries. Acute occlusion of very small branch off of OM2 (too small for intervention). Mild nonobstructive branch vessel diseaseD3 3% ostial. Proximal OM2 25% Normal intracardiac filling pressure --ECHO: Normal left ventricular wall thickness. Left ventricle wall motion is normal with no regional wall motion abnormalities. Left ventricle systolic function is normal. EF 55 to 60%. Subtle mild thickening of the mitral valve and aortic valves without stenosis or regurgitation. Mild tricuspid regurgitation. -- HbA1c 5.8 --Lipid panel within normal limits Continue aspirin, statin, Plavix IV heparin discontinued Appreciate cardiology input Started on atorvastatin 10 mg daily No CAROLYN, ARB, BB given hypotension Plan to be discharged home Advised to follow-up with cardiology on discharge Prediabetes HbA1c 5.8 H/O Rheumatic fever As per records DVT Px: IV heparin--discontinue Code Status Full code Disposition Home Total Time Total Time Spent Total Time Spent (In Minutes): 58 minutes Discharge Plan Discharge Items Patient Disposition: Home - Self-Care Reason For Visit: ACS Discharge Diagnosis: Non-ST segment elevation myocardial infarction Prediabetes Activity: Per Instructions section Exercise/Sports: Wait until after follow-up appointment Non-emergency contact: Primary Care Provider and Sample Checker Call non-emergency contact if: you have any medication questions, your symptoms worsen, your pain is concerning for you and you have a fever Follow-up/Referrals: Mehran Cross DO [Sample Checker] - (The Cardiology office will contact you for a follow up appointment.) Alonzo Flores MD [Primary Care Provider] - (Date & Time 08/07/2023 11:00 AM Provider Alonzo Flores III, MD Department [facility] ) Diet: Heart Healthy Add Attending Provider Instructions: Follow-up with your primary care physician Dr. Flores on 08/07/2023 11:00 AM Follow-up with your professional advisor Dr. Cross as recommended Seek immediate medical attention if your symptoms reoccur or worsen Please take all medications as instructed on discharge list below. Please call if you have any questions or problems. You can reach a [facility] hospitalist on duty at [facility] 24 hours a day by calling [phone] Home Care: * Take your medications exactly as directed. Don't skip doses. * Remember that recovery after a heart attack takes time. Plan to rest for at lease 4-8 weeks while you recover. Then return to normal activity when your doctor says it's okay. * Ask your doctor about joining a heart rehabilitation program. * Tell your doctor if you are feeling depressed. Feelings of sadness are common after a heart attack, but it is important that you speak to someone if you are feeling overwhelmed by these feelings. * If you are having chest pain, call 911 for an ambulance. Do NOT drive yourself to the hospital. * Ask your family members to learn CPR. * Learn to take your own blood pressure and pulse. Keep a record of your results. Ask your doctor when you should seek emergency medical attention. He or she will tell you which blood pressure reading is dangerous. Lifestyle Changes: * Maintain a healthy weight. Get help to lose any extra pounds. * Cut back on salt. * Limit canned, dried, packaged, and fast foods. * Don't add salt to your food. * Season foods with herbs instead of salt when you cook. * Break the smoking habit. Enroll in a stop-smoking program to improve your chances of success. * Limit fatty foods. * Ask your doctor about having your lipid levels checked regularly. * Build up your activity according to your doctor's recommendation. * Ask your doctor when it's okay to resume sexual activity. * Tell your doctor about any erectile dysfunction (ED) medication you are taking. Some ED medications are not safe if you take certain heart medications. * Try to manage stress. Follow Up: It is important for you to keep your follow up appointments with your medical provider. Addtl Speeder Frame Tender Provider Instructions: ACTIVITY RECOMMENDATIONS: Excess manipulation of the wrist should be avoided for the next 24-48 hours. * No lifting over 2 pounds (approximately a 1/2 gallon of milk) with the utilized arm for 24 hours. * No strenuous activity such as bowling or tennis for 3 days. * Keep the site of the procedure covered with a bandage for 24 hours. *You may shower the day after the procedure. Do not take a tub bath or submerge the puncture site in water for the next 3 days. *Do not operate any motorized equipment for 3 days. SPECIAL CARE INSTRUCTIONS: The site may be slightly bruised and sore following your procedure. Should any of the following occur, contact the Dr. who performed your procedure. 1. Redness/inflammation, swelling, chills, or fever, or colored drainage at procedure site within 3-7 days after your procedure. 2. Coldness, discoloration, ongoing numbness, severe pain, or swelling. Expect mild tingling of hand and tenderness at the puncture site for up to three days. If this persists beyond three days, or other symptoms develop, notify the Dr. who performed your procedure. BLEEDING: If the procedure site on your wrist begins to bleed, do not panic 1. Place 1 or 2 fingers firmly just slightly above the insertion site to stop the bleeding. You may be able to feel your pulse as you hold pressure. 2. Lift your finger after 5 minutes to see if the bleeding has stopped. 3. Once the bleeding has stopped, gently wipe the wrist area clean with a bandage. * If the bleeding from your wrist does not stop after 10 minutes, or if there is a large amount of bleeding or spurting, call 911 (do not drive yourself to the hospital). SKIN IRRITATION: * You may experience some redness and/or swelling in the area where radiation was administered. If any skin irritation occurs, please contact your family physician. FOLLOW UP VISIT: Keep any scheduled doctor appointments. Pending Studies at Discharge: No Stand-Alone Forms: My [employer] ([email or web address]), Smoking Cessation Medications and DC Order Prescriptions: New atorvastatin 10 mg Tablet 10 mg PO QAM Qty: 30 1RF clopidogrel 75 mg Tablet 75 mg PO QAM Qty: 30 1RF nitroglycerin [Nitrostat] 0.4 mg Tablet, Sublingual 0.4 mg sublingual UD PRN (Reason: chest pain) Qty: 30 0RF aspirin 81 mg Tablet,Delayed Release (Dr/Ec) 81 mg PO DAILY Qty: 30 1RF Continued diphenhydramine HCl [Benadryl Allergy] 25 mg Tablet 25 mg PO UD PRN (Reason: allergies) sumatriptan 20 mg/actuation spray,non-aerosol 20 mg INTRANASAL UD PRN (Reason: Migraine Headache) pseudoephedrine HCl [Pseudofed] 60 mg Tablet 60 mg PO UD PRN (Reason: congestion while traveling) acetaminophen [Tylenol Extra Strength] 500 mg Tablet 1,000 mg PO Q6H PRN (Reason: Fever Or Pain) Discharge Orders: Discharge Order (Routine); Ordered 08/01/23 Ordered By: Jhonny Cummings Admission Data Admit Date/Time: 07/30/23 23:58 Attending Provider: Jhonny Cummings Admit Provider: Navdeep Ny Primary Care Provider: Alonzo Flores Other Providers: Raven Evans; Mehran Cross; Michael Casarez; Joel Alvares i; Michele John; Jose Elias Garcia; Radha Cartagena; My Godfrey; Raven Cerrato; Lio Green; Bry Apodaca; Guera Holden; Park Mckeon; Cielo Swain; Elian Otero
== END 2023-08-01 14:25 | disposition home or self-care (01) | DRG 282 ==
LOC: ED 20:51 → EDINP 23:58 → 2E 07-31 14:38